=== PATIENT | male | born 1995 | race Caucasian/White ===

== ENCOUNTER 2022-04-20 09:23 | Emergency (ER) | payer OTHER ==
[~2022-04-20] VITALS: Ht 182.9 cm; Wt 100.0 kg
[2022-04-20 11:24] LABS: EOS # 0.1 10^3/uL (0.0-0.5); HEMATOCRIT 45.1 % (42.0-52.0); LYMPH # 1.3 10^3/uL (1.5-5.0); LYMPH % 31.6 % (24.0-44.0); MEAN CORPUSCULAR HGB CONC 35.5 g/dl (32.0-36.5); MEAN CORPUSCULAR VOLUME 87.4 fl (80.0-96.0); MONO # 0.4 10^3/uL (0.0-0.8); MONO % 10.9 % (2.0-8.0); NEUTROPHILS # 2.2 10^3/uL (1.5-8.5); NEUTROPHILS % 54.3 % (36.0-66.0); PLATELET COUNT, AUTOMATED 257 10^3/uL (150-450); RED BLOOD COUNT 5.16 10^6/uL (4.30-6.10); WHITE BLOOD COUNT 4.1 10^3/uL (4.0-10.0)
[2022-04-20 11:36] LABS: INR 0.93; PROTHROMBIN TIME 12.8 SECONDS (12.7-14.5)
[2022-04-20 11:37] LABS: PARTIAL THROMBOPLASTIN TIME 27.2 SECONDS (25.9-37.0)
[2022-04-20 12:07] LABS: ALBUMIN 4.3 GM/DL (3.2-5.2); BILIRUBIN,DIRECT 0.2 MG/DL (0.0-0.2); BILIRUBIN,TOTAL 0.7 MG/DL (0.2-1.0); FREE T4 1.09 NG/DL (0.76-1.46); THYROID STIMULATING HORMONE 1.33 uIU/ML (0.358-3.740); TOTAL PROTEIN 7.6 GM/DL (6.4-8.2)
[2022-04-20 13:37] VITALS: BP 140/50
== END 2022-04-20 13:43 | disposition home or self-care (01) ==
LOC: M ED 09:23
DX: G44.84 Primary exertional headache (principal)